=== PATIENT | male | born 1980 | race Caucasian/White ===

== ENCOUNTER 2017-01-12 15:54 | Emergency (ER) | payer MEDICAID, OTHER ==
[2017-01-12 17:17] LABS: CHLORIDE,CL 104 mmol/L (98-109); SODIUM,NA 140 mmol/L (138-146)
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
== END 2017-01-12 18:25 | disposition home or self-care (01) ==
LOC: VM.ED 15:54
DX: S19.9XXA Unspecified injury of neck, initial encounter (principal); S00.01XA Abrasion of scalp, initial encounter; F17.210 Nicotine dependence, cigarettes, uncomplicated; V89.2XXA Person injured in unspecified motor-vehicle accident, traffic, initial encounter
CPT/HCPCS: 36415; 70450; 72125; 80053; 80305; 81001; 82550; 82553; 84484; 85025; 93005; 99285; G0480